=== PATIENT | female | born 1960 ===

== ENCOUNTER → 2024-10-20 15:00 | Outpatient (CLI) | payer MEDICARE, SELFPAY ==
[2024-10-27 08:11] LABS: Bact Vaginosis-Assoc. bacteria Low - 0 Score (.); Candida albicans, NAA Negative (Negative); Candida glabrata Negative (Negative); Trichomoas vaginalis by NAA Negative (Negative)
== END ==
PROVIDERS: PCP Family Medicine; Visit Provider Family Medicine
DX: N76.0 Acute vaginitis (principal); Z86.2 Personal history of diseases of the blood and blood-forming organs and certain disorders involving the immune mechanism; Z87.11 Personal history of peptic ulcer disease; Z13.220 Encounter for screening for lipoid disorders; E78.00 Pure hypercholesterolemia, unspecified
CPT/HCPCS: 87480; 87491; 87510; 87591; 87798; 87801

== ENCOUNTER → 2024-10-22 09:06 | Outpatient (CLI) | payer MEDICARE, SELFPAY ==
[2024-10-22 10:07] LABS: Add Manual Diff / Slide Review NO; Hematocrit 39.6 % (36-46); Hemoglobin 13.4 g/dL (12.0-16.0); Lymphocytes Absolute Auto 900 /uL (1100-4500); Mean Corpuscular HGB Conc 33.9 % (30-36); Mean Corpuscular Hemoglobin 30.2 PG (26-34); Mean Corpuscular Volume 89.0 fL (80-100); Platelet Count 173 X10^3/uL (150-400)
[2024-10-22 10:29] LABS: Alanine Aminotransferase 26 IU/L (<35); Albumin 4.5 g/dL (3.5-5.0); Albumin Globulin Ratio 1.7 (1.0-2.8); Alkaline Phosphatase 71 U/L (38-126); Blood Urea Nitrogen 16 mg/dL (7-17); Calcium 9.7 mg/dL (8.4-10.2); Carbon Dioxide 24 mmol/L (22-32); Chloride 107 mmol/L (98-107); Cholesterol 306 mg/dL (140-199); Estimated Glomerular Filt Rate > 60 mL/min (>60); Globulin 2.7 g/dL (1.7-4.1); Glucose 98 mg/dL (70-99); HDL Cholesterol 59 mg/dL (40-60); HEMOLYSIS < 15 (0-50); Potassium 4.7 mmol/L (3.4-5.1); Sodium 140 mmol/L (137-145); Total Protein 7.2 g/dL (6.3-8.2); Triglycerides 207 mg/dL (35-150)
[2024-10-22 11:04] LABS: Ferritin 15 ng/mL (11-264)
== END ==
PROVIDERS: PCP Family Medicine; Referring Provider Family Medicine; Visit Provider Family Medicine
DX: E78.00 Pure hypercholesterolemia, unspecified (principal); Z86.2 Personal history of diseases of the blood and blood-forming organs and certain disorders involving the immune mechanism; Z87.11 Personal history of peptic ulcer disease; Z13.220 Encounter for screening for lipoid disorders
CPT/HCPCS: 36415; 80053; 80061; 82172; 82728; 85025

== ENCOUNTER → 2024-11-27 10:21 | Outpatient (CLI) | payer MEDICARE, SELFPAY ==
--- NOTE | 2024-11-27 10:22 | DI.MG.S_ITS ---
MM screening mammo BI: 11/27/2024. BI-RADS: 2 CLINICAL: 64-year old female for bilateral screening mammogram. Tyrer-Cuzick lifetime risk of 5.0%. No personal or first-degree family history of breast cancer. The patient had a prior left breast biopsy. PRIOR EXAMS No prior examinations available. MAMMOGRAPHY TECHNIQUE: 2D and 3D (tomosynthesis) digital mammographic views obtained, with additional images as needed for full coverage. Current study was also evaluated with a Computer Aided Detection (CAD) system. DENSITY B. There are scattered areas of fibroglandular density. MAMMOGRAPHY FINDINGS Right: No suspicious mass, asymmetry, microcalcification, or other abnormality seen. Left: Biopsy marker present on the left. There are no suspicious masses, calcifications, or other findings in the breast. IMPRESSION: Right * No evidence of malignancy. Left * No evidence of malignancy with benign findings. RECOMMENDATIONS Bilateral * Annual screening mammography. OVERALL ASSESSMENT CATEGORY BI-RADS-2: Benign. The [employer] recommends annual screening mammography beginning at age 40 for women with average risk of breast cancer. ELECTRONICALLY SIGNED: Margaret Avina M.D. on 12/02/2024 at 10:44:45 PM PT Interpreting Station ID: [id number]
== END ==
LOC: MAMMO 10:22
PROVIDERS: PCP Naturopath; Referring Provider Family Medicine; Visit Provider Family Medicine
DX: Z12.31 Encounter for screening mammogram for malignant neoplasm of breast (principal)
CPT/HCPCS: 77063; 77067

== ENCOUNTER 2025-01-06 13:50 | Day surgery (SDC) | payer MEDICARE, SELFPAY ==
--- NOTE | 2025-01-06 | PATH_ITS ---
[facility] Accession Number: [id number] No. of containers..03 Tissue . 01 Material submitted: . PART A: esophagus - ESOPHAGEAL PART B: duodenum - DUODENAL PART C: gastrointestinal site - ANTRAL . 01 Diagnosis: A: ESOPHAGUS, BIOPSY: Squamocolumnar junctional mucosa with intestinal metaplasia with background reflux esophagitis. Negative for dysplasia or malignancy. 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 - B: DUODENUM, BIOPSY: Duodenal mucosa with no significant diagnostic abnormality. Negative for active inflammation, features of sprue, dysplasia, or malignancy. - C: GASTRIC ANTRUM, BIOPSY: Gastric mucosa with no significant diagnostic abnormality. Negative for helicobacter organisms on H/E sections. Negative for intestinal metaplasia, dysplasia, or malignancy. [facility] 01/18/2025 1524 Local . 01 Electronically signed: . Cristela Zavala MD, Pathologist NPI- [id number] . 01 Gross description: . Received are three formalin-filled containers each labeled with the patient's name. . A. In a container labeled esophageal, are three fragments of adams, soft tissue which range in size from 0.1 x 0.1 x 0.1 cm to 0.3 x 0.3 x 0.2 cm. All fragments are totally submitted in cassette A1. B. In a container labeled duodenal, are two fragments of adams, soft tissue which range in size from 0.2 x 0.2 x 0.2 cm to 0.3 x 0.3 x 0.2 cm. All fragments are totally submitted in cassette B1. C. In a container labeled antral, is a 0.3 x 0.3 x 0.2 cm portion of tissue. Totally submitted in cassette C1. ([id number]) /KEVEN 01/14/2025 0238 Local . 01 Pathologist provided ICD-10: Z12.11, K20.0 . 01 CPT . 321338, 876620, [id number] Specimen Comment: A courtesy copy of this report has been sent to [facility] Performed at: [address] [facility] [address] [address], [place], [place] [id number] MD Anish Casiano MD Phone: [phone]
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
[2025-01-06 14:11] VITALS: BP 104/66; PULSE 71; RESP 14; TEMP 36.6; O2SAT 99
[2025-01-06] MEDS: LACTATED RINGERS 1,000 ML 42 ML IV (14:20)
--- NOTE | 2025-01-06 14:29 | PM.OP.EC ---
Operative Date/Time/Diagnoses Date of procedure: 01/06/25 Time of procedure: 14:56 Pre-op diagnosis: H/O esophageal ulcer, hiatal hernia, IBS, slow transit, difficult prep Post-op diagnosis: other (Duodenitis, antritis, hiatal hernia, esophagitis) Procedure & Clinicians Study performed: EGD/Colonoscopy with biopsy Same procedure(s) as scheduled: Yes Indications: 64yo F h/o hiatal hernia, esophageal ulcer, slow transit, IBS,difficult prep Surgeon: Efe Del Cid Anesthesia Type: MAC +/- Procedure Notes SCOAP/Timeout: Performed Procedure in detail: EGD Informed consent was obtained. The procedure, its risks, benefits, and alternatives were discussed. Patient understood and agreed to proceed. The patient was placed in the left lateral decubitus position with head elevated. Sedation given per anesthesia. The video endoscope was inserted into the oropharynx and guided under direct vision into the esophagus, stomach, and duodenum which were carefully examined. The scope was retroflexed to examine the hiatus and gastroesophageal junction. Antral biopsies were obtained for Helicobacter pylori. The patient tolerated the procedure very well. There were no apparent complications. Significant EGD findings: Z-line noted at: 37cm Moderate duodenitis, biopsied Moderate antral gastritis, biopsied 2cm hiatal hernia LA Grade C espohagitis with linear streaking, ulcerations, biopsies taken to r/o Dye's No ulcers in stomach or duodenum Colonoscopy Patient placed in left lateral recumbent position. Time out was performed. Procedural sedation was administered by anesthesia. Examination began with a thorough inspection of the perianal area. There was no evidence of fissures, fistulae, external hemorrhoids or cutaneous malignancy. The colonoscope was then placed into the rectum and the lumen was insufflated with carbon dioxide. The scope was carefully advanced forward. Ultimately the cecum was intubated and confirmed by identification of the ileocecal valve, the appendiceal orifice and the confluence of the taenia. The scope was then slowly withdrawn examining the colon thoroughly in all directions. In the rectum, retroflexion of the scope was performed for inspection of the distal rectum and anal canal. ?Significant colonoscopy findings: ?1. Quality of the preparation-good, Horton 2-3, improved with irrigation/suction ?2. Normal screening colonoscopy; no polyps, masses, strictures Scope withdrawal time: 6 minutes Findings: gastritis, hiatal hernia and other findings (esophagitis) Specimen(s): other (gastric, duodenal, esophageal biopsies) Estimated Blood Loss: 5 Complications: none Impression: LA Grade C esophagitis with linear streaks, ulcerations, biopsies to r/o Dye's 2cm Hiatal hernia Moderate antral gastritis and duodenitis, biopsies taken Normal screening colonoscopy Post-procedure Recommendations: Colonscopy in 10 years and Will call with biopsy results Plan for aftercare: PACU then home Follow up: as needed Disposition: PACU
[2025-01-06 14:58] VITALS: BP 93/54; PULSE 58; RESP 16; TEMP 36.6; O2SAT 98
[2025-01-06 15:03] VITALS: BP 94/52; PULSE 58; RESP 16; O2SAT 98
[2025-01-06 15:08] VITALS: BP 94/52; PULSE 66; RESP 14; O2SAT 96
[2025-01-06 15:13] VITALS: BP 99/50; PULSE 65; RESP 16; O2SAT 95
[2025-01-06 15:20] VITALS: BP 90/60; PULSE 71; RESP 14; O2SAT 98
== END 2025-01-06 15:34 | disposition home or self-care (01) ==
PROVIDERS: PCP Naturopath; Referring Provider Surgery; Visit Provider Surgery
PROC: 0DJ08ZZ Inspection of Upper Intestinal Tract, Via Natural or Artificial Opening Endoscopic (ICD-10-PCS; CPT 43239; principal; 2025-01-06 14:45)
PROC: 0DJD8ZZ Inspection of Lower Intestinal Tract, Via Natural or Artificial Opening Endoscopic (ICD-10-PCS; CPT 45378; 2025-01-06 14:45)
DX: Z87.19 Personal history of other diseases of the digestive system (principal); K44.9 Diaphragmatic hernia without obstruction or gangrene; K29.80 Duodenitis without bleeding; K29.70 Gastritis, unspecified, without bleeding; K21.00 Gastro-esophageal reflux disease with esophagitis, without bleeding; K22.70 Barrett's esophagus without dysplasia
CPT/HCPCS: 43239; J2704; J7120